=== PATIENT | female | born 1995 | race Caucasian/White ===

== ENCOUNTER 2016-05-31 18:13 | Emergency (ER) | payer BC, OTHER ==
[~2016-05-31] VITALS: Ht 170.2 cm; Wt 87.0 kg
[~2016-05-31 18:13] MED LIST: CLIN1CAP6 PO; CLON0.5T PO; CLON1 PO; LATU40TA PO; LEVO-88 PO; LISD20 PO
[2016-05-31 18:22] VITALS: BP 108/76; PULSE 103; RESP 16; TEMP 98.3; O2SAT 96
[2016-05-31] MEDS ORDERED: ZANT150T2 PO (18:43)
[2016-05-31] MEDS ORDERED: ONDANSETRON HCL 4 MG/2 ML VIAL IV PUSH ONE ×2 (18:45→21:00)
[2016-05-31] MEDS ORDERED: SODIUM CHLOR 0.9% 1000 ML INJ 1,000 ML IV ONE ×2 (18:45→20:00)
--- NOTE | 2016-05-31 18:48 | PD ---
HPI Chief Complaint: GI Complaint Time Seen by Provider: 18:44 Travel History International Travel<30 days: No Contact w/Intl Traveler<30days: No Traveled to known affect area: No History of Present Illness HPI This 20-year-old female is complaining of vomiting and diarrhea. She started vomiting about 3 hours ago. The diarrhea started just before coming to the ER. The patient Is 8 months . 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 Her last transfusion was last . sHe is followed at [facility]. [facility] Past Medical History Blood Disorders: Yes () Diminished Hearing: No Musculoskeletal: Yes Psychiatric: Yes Reproductive: Yes Immunizations Current: Yes (UTD) ?: : 0 Para: 0 Miscarriage: 0 : 0 Past Surgical History Gynecologic Surgery: Yes (Ruptured Ovarian Cyst ) Social History Alcohol Use: No (Denies.) Tobacco Use: No (Denies.) Substance Use: No (Denies any current use/abuse) Allergies-Medications (Allergen,Severity, Reaction): Coded Allergies: Ibuprofen (Verified Allergy, Mild, ACTS ANTICOAGULANT, 05/31/16) Per pt. Reported Meds & Prescriptions Reported Meds & Active Scripts Active Reported Zantac (Ranitidine HCl) 150 Mg Tab 150 Mg PO DAILY Review of Systems General / Constitutional: No: Fever, Chills Eyes: No: Diploplia, Blurred Vision HENT: No: Headaches Cardiovascular: No: Chest Pain or Discomfort, Palpitations Respiratory: No: Cough Gastrointestinal: Positive: Vomiting, Diarrhea Genitourinary: No: Frequency Musculoskeletal: No: Myalgias Skin: No Rash Neurologic: No: Syncope Hematologic/Lymphatic: Positive: Easy Bruising Physical Exam Narrative GENERAL: Well-developed female SKIN: Focused skin assessment warm/dry. HEAD: Atraumatic. Normocephalic. EYES: Pupils equal and round. No scleral icterus. No injection or drainage. ENT: No nasal bleeding or discharge. Mucous membranes pink and moist. NECK: Trachea midline. No JVD. CARDIOVASCULAR: Regular rate and rhythm. No murmur appreciated. RESPIRATORY: No accessory muscle use. Clear to auscultation. Breath sounds equal bilaterally. GASTROINTESTINAL: Abdomen soft, non-tender, gravid hepatic and splenic margins not palpable. Bowel sounds active MUSCULOSKELETAL: No obvious deformities. No clubbing. No cyanosis. No edema. NEUROLOGICAL: Awake and alert. No obvious cranial nerve deficits. Motor grossly within normal limits. Normal speech. PSYCHIATRIC: Appropriate mood and affect; insight and judgment normal. Data Data Last Documented VS Vital Signs Date Time Temp Pulse Resp B/P Pulse Ox O2 Delivery O2 Flow Rate FiO2 05/31/16 19:00 98.3 85 16 103/69 97 Room Air Orders Complete Blood Count With Diff (05/31/16 18:44) Basic Metabolic Panel (Bmp) (05/31/16 18:44) Sodium Chlor 0.9% 1000 Ml Inj (Ns 1000 M (05/31/16 18:45) Ondansetron Inj (Zofran Inj) (05/31/16 18:45) Sodium Chlor 0.9% 1000 Ml Inj (Ns 1000 M (05/31/16 20:00) Urinalysis - C+S If Indicated (05/31/16 19:56) Labs Laboratory Tests Test 05/31/16 05/31/16 19:00 20:15 White Blood Count 18.0 TH/MM3 Red Blood Count 4.62 MIL/MM3 Hemoglobin 14.2 GM/DL Hematocrit 43.1 % Mean Corpuscular Volume 93.3 FL Mean Corpuscular Hemoglobin 30.8 PG Mean Corpuscular Hemoglobin 33.0 % Concent Red Cell Distribution Width 13.0 % Platelet Count 21 TH/MM3 Mean Platelet Volume 9.4 FL Neutrophils (%) (Auto) 86.1 % Lymphocytes (%) (Auto) 7.5 % Monocytes (%) (Auto) 4.0 % Eosinophils (%) (Auto) 0.5 % Basophils (%) (Auto) 1.9 % Neutrophils # (Auto) 15.5 TH/MM3 Lymphocytes # (Auto) 1.4 TH/MM3 Monocytes # (Auto) 0.7 TH/MM3 Eosinophils # (Auto) 0.1 TH/MM3 Basophils # (Auto) 0.3 TH/MM3 CBC Comment AUTO DIFF Differential Comment AUTO DIFF CONFIRMED Platelet Estimate LOW Platelet Morphology Comment GIANT Sodium Level 141 MEQ/L Potassium Level 4.0 MEQ/L Chloride Level 106 MEQ/L Carbon Dioxide Level 23.1 MEQ/L Anion Gap 12 MEQ/L Blood Urea Nitrogen 12 MG/DL Creatinine 0.80 MG/DL Estimat Glomerular Filtration 90 ML/MIN Rate Random Glucose 79 MG/DL Calcium Level 8.6 MG/DL Urine Color YELLOW Urine Turbidity CLEAR Urine pH 5.5 Urine Specific [place] 1.031 Urine Protein 30 mg/dL Urine Glucose (UA) NEG mg/dL Urine Ketones 80 OR GREATER mg/dL Urine Occult Blood NEG Urine Nitrite NEG Urine Bilirubin NEG Urine Leukocyte Esterase TRACE Urine WBC 0-2 /hpf Urine Squamous Epithelial 0-5 /hpf Cells Urine Bacteria RARE /hpf Urine Mucus FEW /lpf Microscopic Urinalysis Comment CULT NOT INDICATED MDM Medical Decision Making Medical Screen Exam Complete: Yes Emergency Medical Condition: Yes Medical Record Reviewed: Yes Differential Diagnosis Differential includes food poisoning, gastroenteritis, Narrative Course Patient is given IV fluids and Zofran. He reports feeling better and then had a record essence of her nausea and will be given additional Zofran. She does have ketones in her urine suggestive of dehydration. Her white count is elevated at 18,000 repeat exam does not show focal tenderness suggestive of appendicitis. Diagnosis Primary Impression: Acute gastroenteritis Additional Impression: Scripts Ondansetron Odt (Zofran Odt)4 Mg Tab4 Mg SL Q6HR PRN (Nausea/Vomiting) #10 TAB Ref 0 Prov:Hank Ruelas MD 05/31/16 Disposition: 01 DISCHARGE HOME Condition: Stable Hank Ruelas MD May 31, 2016 18:48
[2016-05-31 19:00] VITALS: BP 103/69; PULSE 85; RESP 16; TEMP 98.3; O2SAT 97
[2016-05-31 19:29] LABS: AUTOMATED NEUTROPHIL # 15.5 TH/MM3 (1.8-7.7); BASOPHIL # 0.3 TH/MM3 (0-0.2); BASOPHIL % 1.9 % (0.0-2.0); EOSINOPHIL # 0.1 TH/MM3 (0-0.4); EOSINOPHIL % 0.5 % (0.0-4.0); HEMATOCRIT 43.1 % (35.0-46.0); LYMPH % 7.5 % (9.0-44.0); LYMPHOCYTE # 1.4 TH/MM3 (1.0-4.8); MEAN CELL VOLUME 93.3 FL (80.0-100.0); MEAN CORPUSCULAR HEMOGLOBIN 30.8 PG (27.0-34.0); NEUT % 86.1 % (16.0-70.0); PLATELET COUNT 21 TH/MM3 (150-450); RED BLOOD COUNT 4.62 MIL/MM3 (4.00-5.30)
[2016-05-31 19:30] VITALS: BP 113/74; PULSE 92; RESP 18; O2SAT 97
[2016-05-31 19:31] LABS: HEMO FLAGS AUTO DIFF
[2016-05-31 19:33] LABS: BICARBONATE 23.1 MEQ/L (21.0-32.0)
[2016-05-31 20:02] LABS: PLATELET ESTIMATE SMEAR LOW (NORMAL); PLATELET MORPHOLOGY GIANT (NORMAL); SCAN/DIFF AUTO DIFF CONFIRMED
[2016-05-31 20:29] LABS: BLOOD, URINE NEG (NEG); GLUCOSE,URINE NEG (NEG); NITRITE,URINE NEG (NEG); PH, URINE 5.5 (5.0-8.5)
[2016-05-31 20:30] VITALS: BP 113/69; PULSE 100; RESP 18; O2SAT 97
[2016-05-31 20:31] LABS: KETONE, URINE 80 OR GREATER mg/dL (NEG)
[2016-05-31 20:34] LABS: MUCUS URINE FEW /lpf (OCC); URINE COLOR YELLOW (YELLW/STRAW)
[2016-05-31 20:35] LABS: BACTERIA, URINE RARE /hpf; COMMENT (UR) CULT NOT INDICATED; CULTURE IF INDICATED CULT NOT INDICATED; SQUAMOUS EPITHELIAL CELL URINE 0-5 /hpf (0-5); WBC, URINE 0-2 /hpf (0-5)
[2016-05-31] MEDS ORDERED: ZOFR4TAB3 SL (21:00)
[2016-05-31 21:30] VITALS: BP 127/67; PULSE 100; RESP 18; O2SAT 98
[2016-05-31] MEDS ORDERED: METOCLOPRAMIDE HCL 10 MG/2 ML VIAL IV PUSH ONE (22:00)
[2016-05-31] MEDS ORDERED: SODIUM CHLOR 0.9% 1000 ML INJ 1,000 ML IV SCH (22:00)
[2016-05-31 22:30] VITALS: BP 118/61; PULSE 108; RESP 18; TEMP 98.8; O2SAT 97
--- NOTE | 2016-06-01 01:05 | PD ---
HPI Chief Complaint Nausea, vomiting, diarrhea, decreased movement Date Seen: Jun 01, 2016 Time Seen: 12:50 (Corey Marcum MD R2) Travel History International Travel<30 Days: No Contact w/Intl Traveler<30Days: No Known Affected Area: No (Corey Marcum MD R2) History of Present Illness HPI 20 year old G1 at 33/1 weeks gestation with CARLI of 07/19/16. Presented to ED with nausea, vomiting, diarrhea. Onset was today. She has vomiting 9 times today. She had one episode of diarrhea. She was given 2 liters of normal saline in the ED plus Zofran and Reglan. This improved her symptoms, but she reported feeling decreased movements. She was sent to the OB ED at that time. Decreased movement began tonight. She has no vaginal bleeding, leakage of fluid, or contractions. 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 She is followed by MFM. 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 Couch for hematology Besides the May Hegglin anomaly, no other significant problems in this (Corey Marcum MD R2) Past Surgical History Narrative Surgical Laparoscopic surgery after ruptured ovarian cyst Thumb surgery (Corey Marcum MD R2) Family History Narrative Family History Diabetes, lung cancer (Corey Marcum MD R2) Social History Alcohol Use: No Tobacco Use: No Substance Abuse: No (Corey Marcum MD R2) Allergies-Medications (Allergen,Severity, Reaction): Coded Allergies: Ibuprofen (Verified Allergy, Mild, ACTS ANTICOAGULANT, 05/31/16) Per pt. Home Meds Active Scripts Metoclopramide 10 Mg Tab10 Mg PO QID #30 TAB Ref 0 Prov:Nahomy Howard MD 06/01/16 Ondansetron Odt (Zofran Odt)4 Mg Tab4 Mg SL Q6HR PRN (Nausea/Vomiting) #10 TAB Ref 0 Prov:Hank Ruelas MD 05/31/16 Reported Medications Ranitidine (Zantac)150 Mg [id number] Mg PO DAILY #30 TAB Ref 0 05/31/16 Discontinued Reported Medications Levonorgestrel-Ethinyl Estradi (Levonorgestrel/Ethinyl Es 0.15-0.03 &0.01 mg)1 Tab Tab1 Tab PO DAILY Lutera 03/04/15 Clindamycin Hcl (Clindamycin Hcl)300 Mg [id number] Mg PO DAILY 03/03/15 Lisdexamfetamine Dimesylate (Vyvanse)20 Mg Cap20 Mg PO DAILY 03/03/15 Clonazepam 0.5 Mg Tab0.5 Mg PO BID 03/03/15 Discontinued Scripts Lurasidone Hcl (Latuda)40 Mg Tab40 Mg PO DAILY 30 Days Prov:Otilia Hill MD 03/04/15 Clonazepam (Klonopin)1 Mg Tab1 Mg PO BID #60 TAB Prov:Otilia Hill MD 03/04/15 Review of Systems Except as stated in HPI: all other systems reviewed are Neg (Corey Marcum MD R2) Physical Exam Vital Signs Date Time Temp Pulse Resp B/P Pulse Ox O2 Delivery O2 Flow Rate FiO2 05/31/16 22:30 98.8 108 18 118/61 97 Room Air 05/31/16 21:30 100 18 127/67 98 Room Air 05/31/16 20:30 100 18 113/69 97 Room Air 05/31/16 19:30 92 18 113/74 97 Room Air 05/31/16 19:00 98.3 85 16 103/69 97 Room Air 05/31/16 19:00 16 05/31/16 18:22 98.3 103 16 108/76 96 Narrative GENERAL: Sitting up in bed, still nauseous, no significant distress SKIN: No rash HEAD: Normocephalic and atraumatic. EYES: No scleral icterus. No injection or drainage. ENT: No nasal drainage noted. Mucous membranes pink. Airway patent. NECK: Supple, trachea midline. No JVD. CARDIOVASCULAR: Regular rate and rhythm without murmurs, gallops, or rubs. RESPIRATORY: Breath sounds equal bilaterally. No accessory muscle use. ABDOMEN/GI: Abdomen soft, non-tender, bowel sounds present, no rebound, no guarding Gravid to 33 weeks size GENITOURINARY: Uterine Contractions: none FHT's: Category: 1 Baseline: 130-140's ( tachycardia resolved) Reactive: yes Variability: moderate Decels: none EXTREMITIES: No cyanosis or edema. BACK: Nontender without obvious deformity. No CVA tenderness. NEUROLOGICAL: Awake and alert. Motor and sensory grossly within normal limits. (Corey Macrum MD R2) Data Data Vital Signs Reviewed: Yes Orders Complete Blood Count With Diff (05/31/16 18:44) Basic Metabolic Panel (Bmp) (05/31/16 18:44) Sodium Chlor 0.9% 1000 Ml Inj (Ns 1000 M (05/31/16 18:45) Ondansetron Inj (Zofran Inj) (05/31/16 18:45) Sodium Chlor 0.9% 1000 Ml Inj (Ns 1000 M (05/31/16 20:00) Urinalysis - C+S If Indicated (05/31/16 19:56) Ondansetron Inj (Zofran Inj) (05/31/16 21:00) Sodium Chlor 0.9% 1000 Ml Inj (Ns 1000 M (05/31/16 22:00) Metoclopramide Inj (Reglan Inj) (05/31/16 22:00) Labs Laboratory Tests Test 05/31/16 05/31/16 19:00 20:15 White Blood Count 18.0 Red Blood Count 4.62 Hemoglobin 14.2 Hematocrit 43.1 Mean Corpuscular Volume 93.3 Mean Corpuscular Hemoglobin 30.8 Mean Corpuscular Hemoglobin 33.0 Concent Red Cell Distribution Width 13.0 Platelet Count 21 Mean Platelet Volume 9.4 Neutrophils (%) (Auto) 86.1 Lymphocytes (%) (Auto) 7.5 Monocytes (%) (Auto) 4.0 Eosinophils (%) (Auto) 0.5 Basophils (%) (Auto) 1.9 Neutrophils # (Auto) 15.5 Lymphocytes # (Auto) 1.4 Monocytes # (Auto) 0.7 Eosinophils # (Auto) 0.1 Basophils # (Auto) 0.3 CBC Comment AUTO DIFF Differential Comment AUTO DIFF CONFIRMED Platelet Estimate LOW Platelet Morphology Comment GIANT Sodium Level 141 Potassium Level 4.0 Chloride Level 106 Carbon Dioxide Level 23.1 Anion Gap 12 Blood Urea Nitrogen 12 Creatinine 0.80 Estimat Glomerular Filtration 90 Rate Random Glucose 79 Calcium Level 8.6 Urine Color YELLOW Urine Turbidity CLEAR Urine pH 5.5 Urine Specific [place] 1.031 Urine Protein 30 Urine Glucose (UA) NEG Urine Ketones 80 OR GREATER Urine Occult Blood NEG Urine Nitrite NEG Urine Bilirubin NEG Urine Leukocyte Esterase TRACE Urine WBC 0-2 Urine Squamous Epithelial 0-5 Cells Urine Bacteria RARE Urine Mucus FEW Microscopic Urinalysis Comment CULT NOT INDICATED (Corey Marcum MD R2) MDM Medical Record Reviewed: Yes Interpretation(s) 20 year old female with nausea, vomiting, diarrhea, and decreased movement. - Monitor baby via EFM, including nonstress test - Give IV fluids, received 2 liters via bolus in the ED, will start maintenance fluids - Reglan (category B) for nausea/vomiting as it helped better than Zofran Discussed with Dr. Howard Narrative Course / MDM 20 year old female with gastroenteritis, decreased movement - Encourage plenty of hydration - Instruct on kick count - Follow up with OB provider closely - Give instructions on when to return to OB ED (Corey Marcum MD R2) Diagnosis Diagnosis: Primary Impression: Acute gastroenteritis Additional Impression: Disposition: 01 DISCHARGE HOME Condition: Stable Scripts Metoclopramide 10 Mg Tab10 Mg PO QID #30 TAB Ref 0 Prov:Nahomy Howard MD 06/01/16 Ondansetron Odt (Zofran Odt)4 Mg Tab4 Mg SL Q6HR PRN (Nausea/Vomiting) #10 TAB Ref 0 Prov:Hank Ruelas MD 05/31/16 Referrals: NO PRIMARY CARE PHYSICIAN Patient Instructions: General Instructions, Gastroenteritis (ED) Departure Forms: Tests/Procedures Collaborating MD Comments patient seen and examined. After IV hydration desires discharge with reglan prescription. (Nahomy Howard MD) Corey Marcum MD R2 Jun 01, 2016 01:05 Nahomy Howard MD Jun 01, 2016 01:44
[2016-06-01] MEDS ORDERED: METOCLOPRAMIDE HCL 10 MG/2 ML VIAL IV PUSH ONE (01:15)
[2016-06-01] MEDS ORDERED: SODIUM CHLOR 0.9% 1000 ML INJ 1,000 ML IV SCH (01:15)
[2016-06-01] MEDS ORDERED: METO10TA PO (01:43)
== END 2016-06-01 02:00 | disposition left against medical advice (07) ==
LOC: PHED 18:13 → HOBED 06-01 02:00
DX: O99.613 Diseases of the digestive system complicating pregnancy, third trimester (principal); K52.9 Noninfective gastroenteritis and colitis, unspecified; D72.0 Genetic anomalies of leukocytes; Z3A.33 33 weeks gestation of pregnancy
CPT/HCPCS: 59025; 80048; 81001; 85025; 96360; 96361; 99283; J2405; J2765; J7030

== ENCOUNTER 2017-02-18 18:56 | Emergency (ER) | payer BC ==
[~2017-02-18 18:56] MED LIST changes: -CLIN1CAP6 PO; -CLON0.5T PO; -CLON1 PO; -LATU40TA PO; -LEVO-88 PO; -LISD20 PO; +METO10TA PO; +ZANT150T2 PO; +ZOFR4TAB3 SL
[2017-02-18 19:08] VITALS: BP 133/72; PULSE 77; RESP 20; TEMP 98.4; O2SAT 95
[2017-02-18] MEDS ORDERED: CLIN300C5 PO (19:18)
[2017-02-18] MEDS ORDERED: MAGICADU2 SWISH-SWAL (19:18)
[2017-02-18] MEDS ORDERED: HYDR-3516 PO (20:13)
--- NOTE | 2017-02-18 20:13 | PD ---
HPI Chief Complaint: Oral / Dental Pain or Problem Time Seen by Provider: 19:43 Travel History International Travel<30 days: No Contact w/Intl Traveler<30days: No Traveled to known affect area: No History of Present Illness HPI 21-year-old female presents to emergency department complaining of pain in the left upper molar tooth area for 2 days. Patient states that she is having trouble opening her mouth and she has increased pain when chewing. Says he has an unusual taste in her mouth. Patient states that she called her dentist and he prescribed her an antibiotic for a possible infection. Her dentist then recommended to follow up here in the emergency department. States the swelling of the jaw appears to be decreasing however, her pain is still moderate to severe. Says her neck is also painful but is improving with antibiotics. 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 Denies fevers or chills. Denies chest pain, shortness of breath. PFSH Past Medical History Blood Disorders: Yes () Diminished Hearing: No Musculoskeletal: Yes Psychiatric: Yes Reproductive: Yes Immunizations Current: Yes (UTD) Tetanus Vaccination: > 5 Years Influenza Vaccination: No ?: Unknown LMP: 16 MONTHS AGO : 1 Para: 1 Miscarriage: 0 : 0 Past Surgical History Gynecologic Surgery: Yes (Ruptured Ovarian Cyst ) Social History Alcohol Use: No Tobacco Use: No Substance Use: No (Denies any current use/abuse) Allergies-Medications (Allergen,Severity, Reaction): Coded Allergies: ibuprofen (Unverified Allergy, Mild, ACTS ANTICOAGULANT, 02/18/17) Per pt. Reported Meds & Prescriptions Reported Meds & Active Scripts Active Hydrocodone-Acetaminophen 5-325 mg Tab 1 Tab PO Q6H PRN 3 Days Reported Magic Mouthwash Adult Liq (Multi-Ingredient Mouthwash/Gargle) 120 Ml Susp 10 Ml SWISH-SWAL ACHS Each 5mL contains: Nystatin 200,000units, Diphenhydramine 4.25mg, Viscous Lidocaine 10mg, Bocanegra syrup 0.8 mL Clindamycin (Clindamycin HCl) 300 Mg Cap 300 Mg PO DIRECTED Review of Systems Except as stated in HPI: all other systems reviewed are Neg Physical Exam Narrative GENERAL: Well developed, well nourished in mild distress, holding an ice pack against her cheek. SKIN: Focused skin assessment warm/dry. HEAD: Atraumatic. Normocephalic. EYES: Pupils equal and round. No scleral icterus. No injection or drainage. ENT: No nasal bleeding or discharge. Mucous membranes pink and moist. Gingiva- no area of fluctance, discharge, or erythema. TTP to posterior mandible. NECK: Trachea midline. No JVD. No lymphadenopathy, left TTP upper neck and mandibular region. No clicks or popping of the jaw. No meningismus. CARDIOVASCULAR: Regular rate and rhythm. No murmur appreciated. RESPIRATORY: No accessory muscle use. Clear to auscultation. Breath sounds equal bilaterally. MUSCULOSKELETAL: No obvious deformities. No clubbing. No cyanosis. No edema. NEUROLOGICAL: Awake and alert. No obvious cranial nerve deficits. Motor grossly within normal limits. Normal speech. PSYCHIATRIC: Appropriate mood and affect; insight and judgment normal. Data Data Last Documented VS Vital Signs Date Time Temp Pulse Resp B/P (MAP) Pulse Ox O2 Delivery O2 Flow Rate FiO2 02/18/17 19:08 98.4 77 20 133/72 (92) 95 Orders Orders Ed Discharge Order (02/18/17 20:15) MDM Medical Decision Making Medical Screen Exam Complete: Yes Emergency Medical Condition: Yes Differential Diagnosis Tooth infection, gingivitis, abscess Narrative Course 21-year-old female presents to emergency department complaining of pain in the left upper molar tooth area for 2 days. Patient states that she is having trouble opening her mouth and she has increased pain when chewing. Says he has an unusual taste in her mouth. Patient states that she called her dentist and he prescribed her an antibiotic for a possible infection. Her dentist then recommended to follow up here in the emergency department. States the swelling of the jaw appears to be decreasing however, her pain is still moderate to severe. Says her neck is also painful but is improving with antibiotics. 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 Denies fevers or chills. Denies chest pain, shortness of breath. Vital signs stable. Physical exam findings consistent with dental infection without abscess. Continue antibiotics as prescribed. Short course of pain medication prescribed. Advised pt and sister, whom is an RN [employer], to follow up with the dentist as discussed. Followup with PCP for further pain medications. Return to the ED for worsening or persistent symptoms. Diagnosis Primary Impression: Dental infection Referrals: Oral Maxillofacial Surgeon Additional Instructions: Follow up with your primary care physician within 2-3 days. If your symptoms persist or worsen, return to the emergency department. Scripts Hydrocodone-Acetaminophen (Hydrocodone-Acetaminophen) 5-325 mg Tab 1 TAB PO Q6H Y for PAIN for 3 Days, #9 TAB 0 Refills Prov: Golden Rosa MD 02/18/17 Disposition: 01 DISCHARGE HOME Condition: Stable Leatha Willson Feb 18, 2017 20:13
== END 2017-02-18 20:21 | disposition home or self-care (01) ==
LOC: PHEFT 18:56
DX: K04.7 Periapical abscess without sinus (principal); D72.0 Genetic anomalies of leukocytes
CPT/HCPCS: 99283